=== PATIENT | female | born 1980 | race African-American/Black ===

== ENCOUNTER 2024-05-12 06:55 | Inpatient (IN) | payer MEDICARE, MEDICAID ==
[~2024-05-12] VITALS: Ht 175.3 cm; Wt 86.5 kg
[~2024-05-12 06:55] MED LIST: ALBUPOW26; CARB300C9 PO; CLON0.5T3 PO; DICL1GEL59 TOP; LACO50TA2; OXYC325T14 PO; PANTPAK PO; TIZA4CAP PO; TOPI100T68 PO; VENL150T34 PO
[2024-05-12 07:57] VITALS: PULSE 90; RESP 17; O2SAT 97
[2024-05-12] MEDS: SODIUM CHLORIDE 0.9% 1,000 ML IVB ONE (08:31)
[2024-05-12] MEDS: ACETAMINOPHEN 325 MG TAB PO ONE (08:36)
[2024-05-12] MEDS: NEOMYCIN-BACITRACIN-POLYM UNITDOSE PKG TOP OINT TOP ONE (08:36)
[2024-05-12] MEDS: LIDOCAINE W/ EPINEPHRINE 2% INJ 20ML VIAL ID ONE (08:38)
[2024-05-12 09:15] LABS: Basophils # (auto) 0.1 10 ^3/uL (0-0.2); Eosinophils # (auto) 0.4 10 ^3/uL (0-0.8); Eosinophils % (auto) 4.5 % (0.0-7.0); Monocytes # (auto) 0.6 10 ^3/uL (0-1.3)
[2024-05-12 09:17] LABS: Basophils % (auto) 0.9 % (0.0-2.0); Hematocrit 38.7 % (36.0-46.0); Hemoglobin 12.3 g/dL (12.2-16.2); Lymphocytes # (auto) 2.2 10 ^3/uL (0.4-5.4); Lymphocytes % (auto) 27.8 % (10.0-50.0); Mean Corpuscular Hemoglobin 23.9 pg (28.0-32.0); Mean Corpuscular Hgb Conc. 31.7 g/dL (32.0-36.0); Mean Corpuscular Volume 75.5 fL (80.0-100.0); Monocytes % (auto) 7.7 % (0.0-12.0); Neutrophils # (auto) 4.7 10 ^3/uL (1.6-8.6); Neutrophils % (auto) 59.1 % (37.0-80.0); Platelet Count (auto) 366 10^3/uL (140-450); Red Blood Cells 5.13 10^6/uL (4.0-5.20); Red Cell Distribution Width 14.7 % (11.8-14.3)
[2024-05-12 09:32] LABS: Alanine Aminotransferase 15 U/L (7-40); Albumin 3.9 g/dL (3.2-4.8); Alkaline Phosphatase 70 U/L (46-116); Anion Gap 8 (5-15); Aspartate Aminotransferase 18 U/L (13-40); BUN/Creatinine Ratio 5.4 (10.0-20.0); Blood Alcohol < 3.0 mg/dL (<10); Blood Urea Nitrogen 10 mg/dL (9-23); Calcium 9.3 mg/dL (8.7-10.4); Carbon Dioxide 24 mmol/L (20-31); Chloride 113 mmol/L (98-107); Glucose 82 mg/dL (74-106); Potassium 3.8 mmol/L (3.5-5.1); Sodium 145 mmol/L (136-145)
[2024-05-12 09:33] LABS: Bilirubin, Total 0.2 mg/dL (0.2-1.0)
[2024-05-12] MEDS: TETANUS-DIPTH-ACEL PERTUSSIS 0.5ML SYR Tdap IM ONE (09:36)
[2024-05-12] MEDS: IOHEXOL 350 MG/ML 100ML IJ ONE (09:37)
[2024-05-12 11:24] LABS: Urine Bacteria FEW /hpf (None Seen); Urine Blood Negative /uL (Negative); Urine Clarity Clear (Clear); Urine Color Light-Yellow (Yellow); Urine Mucus FEW (None Seen); Urine Protein, UAD Negative (Negative); Urine Urobilinogen Normal (Negative); Urine WBC 17 /hpf (0 - 5); Urine pH 5.5 (5.0-9.0)
[2024-05-12 11:25] LABS: Amphetamine Screen, Urine Neg (NEGATIVE); Barbiturate Scree,Urine Neg (NEGATIVE); Benzodiazephine Screen, Urine Neg (NEGATIVE); Cannabinoid Screen, Urine Pos (NEGATIVE); Cocaine Screen, Urine Neg (NEGATIVE); Opiate Scree,Urine Neg (NEGATIVE); Phencyclidine Screen, Urine Neg (NEGATIVE)
[2024-05-12] MEDS: KETOROLAC TROMETH 30 MG/ML 1ML VIAL IV ONE (11:36)
[2024-05-12 12:11] LABS: COVID19 ANTIGEN SOFIA FIA NEGATIVE (NEGATIVE)
[2024-05-12] MEDS: BACITRACIN TOP OINT 1 UD PKG TOP ONE (12:14)
[2024-05-12] MEDS ORDERED: MORPHINE SULFATE INJ 2 MG/ml SYRG IV PRN (15:15)
[2024-05-12] MEDS ORDERED: ONDANSETRON HCL 4 MG/2 ML VIAL IV PRN (15:15)
[2024-05-12] MEDS ORDERED: levETIRAcetam 500 MG TAB PO SCH (15:15)
[2024-05-12] MEDS ORDERED: VENL75CA78 PO (15:15)
[2024-05-12] MEDS ORDERED: PANTOPRAZOLE 40 MG TAB PO SCH (15:15)
[2024-05-12] MEDS ORDERED: LEVE500T3 PO (15:15)
[2024-05-12] MEDS ORDERED: VENLAFAXINE HCL 37.5MG TABLET PO SCH (15:15)
[2024-05-12] MEDS: VENLAFAXINE HCL 37.5mg XR cap PO SCH (15:48)
[2024-05-12 17:53] VITALS: BP 104/71; PULSE 76; RESP 18; TEMP 98.3; O2SAT 98
[2024-05-12] MEDS: HYDROcodone-ACET 5/325MG TAB PO PRN (17:58)
[2024-05-12 20:15] VITALS: PULSE 89; RESP 16; O2SAT 97
[2024-05-12] MEDS ORDERED: LORazepam 2MG/ML-1ML VIAL IV PRN ×2 (21:00)
[2024-05-12 22:25] VITALS: PULSE 88; RESP 18; O2SAT 96
[2024-05-12] MEDS: levETIRAcetam 500 MG TAB PO SCH (22:33)
[2024-05-13] VITALS (10 sets, daily range): BP systolic 5–163; BP diastolic 57–96; PULSE 70–89; RESP 16–18; TEMP 97.9–98.5; O2SAT 95–98
[2024-05-13] MEDS: MORPHINE SULFATE INJ 2 MG/ml SYRG IV PRN (00:22)
[2024-05-13] MEDS: ONDANSETRON HCL 4 MG/2 ML VIAL IV PRN (00:37)
[2024-05-13] MEDS: PANTOPRAZOLE 40 MG TAB PO SCH (05:17)
[2024-05-13 06:51] LABS: Basophils # (auto) 0.1 10 ^3/uL (0-0.2); Eosinophils # (auto) 0.6 10 ^3/uL (0-0.8); Lymphocytes % (auto) 38.6 % (10.0-50.0); Monocytes # (auto) 0.6 10 ^3/uL (0-1.3); Nucleated Red Blood Cells % 0.1 %
[2024-05-13 06:54] LABS: Eosinophils % (auto) 6.8 % (0.0-7.0); Hematocrit 38.6 % (36.0-46.0); Hemoglobin 12.1 g/dL (12.2-16.2); Lymphocytes # (auto) 3.2 10 ^3/uL (0.4-5.4); Mean Corpuscular Hemoglobin 23.8 pg (28.0-32.0); Mean Corpuscular Hgb Conc. 31.5 g/dL (32.0-36.0); Mean Corpuscular Volume 75.5 fL (80.0-100.0); Neutrophils # (auto) 3.9 10 ^3/uL (1.6-8.6); Neutrophils % (auto) 46.6 % (37.0-80.0); Platelet Count (auto) 329 10^3/uL (140-450); Red Blood Cells 5.11 10^6/uL (4.0-5.20); Red Cell Distribution Width 14.4 % (11.8-14.3); White Blood Cell 8.3 10^3/uL (4.4-10.8)
[2024-05-13 07:04] LABS: Anion Gap 11 (5-15); Carbon Dioxide 23 mmol/L (20-31); Chloride 107 mmol/L (98-107); Potassium 3.1 mmol/L (3.5-5.1); Sodium 141 mmol/L (136-145)
[2024-05-13 07:09] LABS: BUN/Creatinine Ratio 6.9 (10.0-20.0); Blood Urea Nitrogen 7 mg/dL (9-23); Glucose 112 mg/dL (74-106)
[2024-05-13 09:28] LABS: Triglycerides 125 mg/dL (< 150)
[2024-05-13 09:29] LABS: LDL Cholesterol 80 mg/dL (< 100)
[2024-05-13 09:31] LABS: Cholesterol 143 mg/dL (< 200); HDL Cholesterol 47 mg/dL (40-59)
[2024-05-13] MEDS ORDERED: clonazePAM 0.5 MG TAB PO ONE (10:30)
[2024-05-13] MEDS: POLYETHYLENE GLYCOL 17 GM PWDR PO PRN (13:25)
[2024-05-13] MEDS: BISACODYL 5 MG EC TAB PO PRN (13:25)
[2024-05-13] MEDS: POTASSIUM EFFERVESENT TAB 25 MEQ PO ONE (18:13)
[2024-05-13] MEDS: CYCLOBENZAPRINE HCL 10 MG TAB PO SCH (21:20)
[2024-05-13] MEDS: MORPHINE SULFATE INJ 2 MG/ml SYRG IV ONE (22:20)
[2024-05-14] VITALS (13 sets, daily range): BP systolic 108–143; BP diastolic 54–96; PULSE 72–105; RESP 16–19; TEMP 98.1–98.8; O2SAT 94–100
[2024-05-14] MEDS: clonazePAM 0.5 MG TAB PO ONE (00:13)
[2024-05-14] MEDS: MORPHINE SULFATE INJ 2 MG/ml SYRG IV ONE ×2 (05:35→13:55)
[2024-05-14 06:27] LABS: Basophils # (auto) 0.1 10 ^3/uL (0-0.2); Eosinophils # (auto) 0.6 10 ^3/uL (0-0.8); Monocytes # (auto) 0.5 10 ^3/uL (0-1.3)
[2024-05-14 06:28] LABS: Eosinophils % (auto) 7.7 % (0.0-7.0); Hematocrit 37.8 % (36.0-46.0); Hemoglobin 12.1 g/dL (12.2-16.2); Lymphocytes # (auto) 3.2 10 ^3/uL (0.4-5.4); Lymphocytes % (auto) 44.4 % (10.0-50.0); Mean Corpuscular Hemoglobin 23.9 pg (28.0-32.0); Mean Corpuscular Volume 74.7 fL (80.0-100.0); Monocytes % (auto) 7.4 % (0.0-12.0); Neutrophils # (auto) 2.9 10 ^3/uL (1.6-8.6); Neutrophils % (auto) 39.5 % (37.0-80.0); Nucleated Red Blood Cells % 0.1 %; Platelet Count (auto) 329 10^3/uL (140-450); Red Blood Cells 5.05 10^6/uL (4.0-5.20); Red Cell Distribution Width 14.1 % (11.8-14.3); White Blood Cell 7.3 10^3/uL (4.4-10.8)
[2024-05-14 06:42] LABS: Chloride 105 mmol/L (98-107); Potassium 3.5 mmol/L (3.5-5.1); Sodium 140 mmol/L (136-145)
[2024-05-14 06:43] LABS: Anion Gap 7 (5-15); Carbon Dioxide 28 mmol/L (20-31)
[2024-05-14 06:48] LABS: Blood Urea Nitrogen 7 mg/dL (9-23); Glucose 100 mg/dL (74-106)
== END 2024-05-14 19:28 | disposition home or self-care (01) | DRG 101 ==
LOC: ER 06:55 → EDBD 06:55 → OVERFLOW 15:03 → ER 15:07 → EAST 21:58 → TELE-EAST 05-13 20:40
PROVIDERS: ADMIT Registered Nurse General Practice; ATTEND Student in an Organized Health Care Education/Training Program
PROC: 0HQ1XZZ Repair Face Skin, External Approach (ICD-10-PCS; principal; 2024-05-12)
DX: G40.209 Localization-related (focal) (partial) symptomatic epilepsy and epileptic syndromes with complex partial seizures, not intractable, without status epilepticus (principal); S05.31XA Ocular laceration without prolapse or loss of intraocular tissue, right eye, initial encounter; E87.1 Hypo-osmolality and hyponatremia; S09.90XA Unspecified injury of head, initial encounter; F12.10 Cannabis abuse, uncomplicated; K21.9 Gastro-esophageal reflux disease without esophagitis; Z20.822 Contact with and (suspected) exposure to COVID-19; W18.39XA Other fall on same level, initial encounter; G43.909 Migraine, unspecified, not intractable, without status migrainosus; F41.9 Anxiety disorder, unspecified; E66.9 Obesity, unspecified; E87.6 Hypokalemia; G89.29 Other chronic pain; D50.9 Iron deficiency anemia, unspecified; F31.9 Bipolar disorder, unspecified; S01.81XA Laceration without foreign body of other part of head, initial encounter; J45.909 Unspecified asthma, uncomplicated; Z90.711 Acquired absence of uterus with remaining cervical stump; Y93.89 Activity, other specified; Y92.89 Other specified places as the place of occurrence of the external cause; Y99.8 Other external cause status; Z83.3 Family history of diabetes mellitus; Z82.49 Family history of ischemic heart disease and other diseases of the circulatory system; Z82.3 Family history of stroke; Z68.28 Body mass index [BMI] 28.0-28.9, adult; Z88.1 Allergy status to other antibiotic agents
CPT/HCPCS: 12013; 36415; 70450; 70496; 70551; 71045; 80048; 80053; 80061; 80307; 80320; 81001; 83036; 83735; 84443; 84484; 85025; 87426; 90471; 90715; 93005; 93306; 95819; 96361; 96374; 99291; G0378; J1885; J2405